=== PATIENT | male | born 1940 | race Caucasian/White ===

== ENCOUNTER → 2020-08-11 12:14 | Outpatient (CLI) | payer BC, SELFPAY ==
[2020-08-11 19:26] LABS: Add Manual Diff / Slide Review NO; Basophils Absolute Auto 0 /uL (0-100); Basophils Percent Auto 0.6 % (0-2); Eosinophils Absolute Auto 0 /uL (0-450); Eosinophils Percent Auto 0.5 % (2-4); Hematocrit 44.7 % (41-53); Hemoglobin 14.9 g/dL (13.5-17.5); Lymphocytes Absolute Auto 1600 /uL (1100-4500); Mean Corpuscular HGB Conc 33.4 % (30-36); Mean Corpuscular Hemoglobin 32.5 PG (26-34); Mean Corpuscular Volume 97.4 fL (80-100); Monocytes Absolute Auto 500 /uL (0-900); Monocytes Percent Auto 6.2 % (3-14); Neutrophils Absolute Auto 5300 /uL (1500-7000); Neutrophils Percent Auto 71.7 % (50-75); Platelet Count 172 X10^3/uL (150-400); Red Blood Cell Count 4.59 X10^6/uL (4.5-5.9); White Blood Cell Count 7.4 X10^3/uL (4.5-11.0)
[2020-08-11 19:33] LABS: Alanine Aminotransferase 14 IU/L (<50); Albumin 3.9 g/dL (3.5-5.0); Albumin Globulin Ratio 1.4 (1.0-2.8); Alkaline Phosphatase 66 U/L (38-126); Aspartate Aminotransferase 26 IU/L (17-59); BUN Creatinine Ratio 15.9 (6-22); Bilirubin Total 0.5 mg/dL (0.2-1.3); Blood Urea Nitrogen 13 mg/dL (9-20); Calcium 9.4 mg/dL (8.4-10.2); Carbon Dioxide 26 mmol/L (22-32); Chloride 104 mmol/L (98-107); Estimated Glomerular Filt Rate > 60.0 mL/min (>60); Globulin 2.7 g/dL (1.7-4.1); Glucose 116 mg/dL (80-110); HEMOLYSIS 20 (0-50); Potassium 4.4 mmol/L (3.4-5.1); Sodium 136 mmol/L (137-145); Total Protein 6.6 g/dL (6.3-8.2)
[2020-08-11 20:03] LABS: Prostate Specific Antigen Scrn 3.59 ng/mL (0.1-4.0)
== END ==
PROVIDERS: PCP Family Medicine; Visit Provider Family Medicine
DX: N40.0 Benign prostatic hyperplasia without lower urinary tract symptoms (principal); Z12.5 Encounter for screening for malignant neoplasm of prostate
CPT/HCPCS: 80053; 85025; G0103

== ENCOUNTER → 2021-02-08 10:21 | Outpatient (CLI) | payer BC, SELFPAY ==
[2021-02-08 19:35] LABS: Appearance Urine UA CLOUDY; Bilirubin Urine UA NEGATIVE (NEGATIVE); Color Urine UA RED; Glucose Urine UA NEGATIVE (Negative); Ketones Urine UA NEGATIVE (NEGATIVE); Leukocyte Esterase Urine UA NEGATIVE (NEGATIVE); Nitrite Urine UA NEGATIVE (Negative); Occult Blood Urine UA 3+ (Negative); Protein Urine UA 2+ (Negative); Specific Gravity Urine UA 1.025 (1.000-1.035); Urobilinogen Urine UA 0.2 E.U./dL (0.2); pH Urine UA 5.5 (4.5-8.0)
[2021-02-08 19:40] LABS: Other Crystals Urine None Seen; RBC Urine >100/HPF (0-5/HPF); WBC Urine 5-10/HPF (0-5/HPF)
[2021-02-08 19:41] LABS: Bacteria Urine Few (2-10)
== END ==
PROVIDERS: PCP Family Medicine; Referring Provider Physician Assistant Medical; Visit Provider Physician Assistant Medical
DX: R31.9 Hematuria, unspecified (principal)
CPT/HCPCS: 81001; 87086

== ENCOUNTER 2021-03-11 10:34 | Emergency (ER) | payer MEDICARE, SELFPAY ==
[2021-03-11 10:43] VITALS: O2SAT 97
[2021-03-11 10:44] VITALS: BP 198/91; PULSE 57; O2SAT 98
[2021-03-11 10:48] VITALS: BP 195/84; PULSE 56; O2SAT 98
[2021-03-11 11:00] VITALS: BP 183/87; PULSE 54; O2SAT 98
[2021-03-11 11:20] VITALS: BP 198/91; PULSE 55; RESP 18; TEMP 36.2; O2SAT 97; BMI 24.3
[2021-03-11 11:54] LABS: Appearance Urine UA CLEAR; Bilirubin Urine UA NEGATIVE (NEGATIVE); Color Urine UA YELLOW; Glucose Urine UA NEGATIVE (Negative); Ketones Urine UA 1+ (NEGATIVE); Leukocyte Esterase Urine UA NEGATIVE (NEGATIVE); Nitrite Urine UA NEGATIVE (Negative); Occult Blood Urine UA 2+ (Negative); Protein Urine UA NEGATIVE (Negative); Urobilinogen Urine UA 0.2 E.U./dL (0.2); pH Urine UA 6.5 (4.5-8.0)
[2021-03-11 12:00] LABS: Amorphous Sediment Urine 2+; Bacteria Urine None Seen; Culture Indicated Urine Cult Not Indicated; RBC Urine 1-5/HPF (0-5/HPF); Renal Epithelial Cells Urine 1-5/HPF (0-1/HPF); Transitional Epi Cells Urine 5-10/HPF (0-5/HPF); WBC Urine 0-1/HPF (0-5/HPF)
--- NOTE | 2021-03-11 12:02 | ED.MALEGU ---
HPI - Male Genitourinary General Chief complaint: Urogenital-Male Stated complaint: Cannot urinate Time Seen by Provider: 03/11/21 11:08 Source: patient Mode of arrival: Ambulatory Limitations: no limitations History of Present Illness HPI Narrative: Patient is an 80-year-old male with history of BPH, previous UTI in February presenting today with increased urinary frequency last night. He states he was up multiple times urinating was only dribbles. He denies any painful urination no fevers chills. No flank pain no abdominal pain nausea vomiting. Bladder scan in the ED showed 249 mL. He has urinated in the ED since then. He was concerned because of previous UTI. Related Data Previous Rx's Medication Instructions Recorded tamsulosin 0.4 mg capsule See Rx Instructions .ROUTE 01/03/21 .COMPLEX #90 cap ciprofloxacin HCl 500 mg tablet 500 mg PO BID #14 tab 02/08/21 (Cipro) Allergies Allergy/AdvReac Type Severity Reaction Status Date / Time No Known Drug Allergies Allergy Verified 03/11/21 11:19 Review of Systems Review of Systems Narrative: GENERAL: Denies chills,fever HEENT: Denies throat pain RESPIRATORY: Denies dyspnea, cough, wheezing CARDIOVASCULAR: Denies chest pain, palpitations : See HPI GASTROINTESTINAL: Denies nausea, vomiting MUSCULOSKELETAL: Denies extremity pain, injury SKIN: No rash, no laceration, no pruritus NEUROLOGIC: Denies weakness, dizziness, headache, numbness 8 point review of systems is negative except for those stated above and HPI Patient History Medical History (Updated 03/11/21 @ 12:13 by Maureen Chaney DO) Borderline hypertension BPH (benign prostatic hyperplasia) Dyskinesia History of colon polyps Suicide attempt Social History Smoking Status: Never smoker Smoking Status: Never smoker Substance Use Type: does not use Exam Initial Vital Signs Initial Vital Signs: Vital Signs Pulse Oximetry 97 03/11/21 10:43 GENERAL: Alert pleasant 80-year-old male no acute distress CARDIOVASCULAR: peripheral pulses in tact, cap refill <2 sec RESPIRATORY: No respiratory distress, speaks in full sentences without difficulty ABDOMEN: Soft, nontender, no guarding or rebound : No flank pain no suprapubic pain EXTREMITIES: Normal range of motion, no clubbing or edema. Neurovascularly intact NEUROLOGICAL: Cranial nerves II through XII grossly intact. Normal gait and speech. SKIN: Warm, dry, no petechiae, no rashes or lesions. Course Orders Ordered: ED Orders 03/11/21 11:50 Urinalysis and Microscopic Stat Vital Signs Vital signs: Vital Signs - 8 hr 03/11/21 10:43 03/11/21 10:44 03/11/21 10:48 Temperature Pulse Rate 57 L 56 L Respiratory Rate Blood Pressure 198/91 H 195/84 H Pulse Oximetry 97 98 98 03/11/21 11:00 03/11/21 11:20 Temperature 97.1 F L Pulse Rate 54 L 55 L Respiratory Rate 18 Blood Pressure 183/87 H 198/91 H Pulse Oximetry 98 97 MDM - Male Genitourinary Lab Data Labs: Lab Results 03/11/21 Range/Units 11:50 Urine Color Yellow Urine Appearance Clear Urine pH 6.5 (4.5-8.0) Ur Specific [place] 1.010 (1.000-1.035) Urine Protein Negative (Negative) Urine Glucose (UA) Negative (Negative) g/dL Urine Ketones 1+ H (NEGATIVE) Urine Occult Blood 2+ H (Negative) Urine Nitrate Negative (Negative) Urine Bilirubin Negative (NEGATIVE) Urine Urobilinogen 0.2 (0.2) E.U./dL Ur Leukocyte Esterase Negative (NEGATIVE) Urine RBC 1-5/hpf D (0-5/HPF) Urine WBC 0-1/hpf (0-5/HPF) Ur Transition Epith Cell 5-10/hpf H (0-5/HPF) Ur Renal Epithelial Cell 1-5/hpf H (0-1/HPF) Amorphous Sediment 2+ Urine Bacteria None seen (None) Ur Culture Indicated? Cult not indicated [facility] Narrative Medical decision making narrative: At this time patient overall appears well he is afebrile he has no sign of UTI at this time. Symptoms may be more consistent with BPH. He is already taking Flomax, at this time no changes. Discharge Plan Departure Patient Disposition: Home Clinical Impression: BPH (benign prostatic hyperplasia) Instructions: DI for Benign Prostatic Hyperplasia Activity Restrictions/Additional Instructions: *You have been diagnosed with BPH *What to do: At this time there is no evidence of infection no need for antibiotics. Please continue to monitor symptoms. *Continue to take medications as directed *Follow up with your primary care provider in 2-3 days *Return to ER if you should have increasing painful urination, abdominal pain, fever chills change in mental status or any new, worsening or concerning symptoms Prescriptions: No Action tamsulosin 0.4 mg capsule See Rx Instructions .ROUTE .COMPLEX Qty: 90 RF: 1 ciprofloxacin HCl [Cipro] 500 mg tablet 500 mg PO BID Qty: 14 RF: 0 Referrals: Carl Tadeo DO [Primary Care Provider] -
--- NOTE | 2021-03-11 12:27 | PC.NURSE ---
Pt reports frequency throughout the night but unable to pee. Reports voiding a pint prior to arrival. Denies fevers or chills.
== END 2021-03-11 12:31 | disposition home or self-care (01) ==
PROVIDERS: Emergency Provider Emergency Medicine; PCP Family Medicine
DX: N40.0 Benign prostatic hyperplasia without lower urinary tract symptoms (principal)
CPT/HCPCS: 81001; 99282